=== PATIENT | male | born 1970 | race African-American/Black ===

== ENCOUNTER 2020-08-30 16:49 | Observation (INO) ==
[2020-08-30] MEDS ORDERED: 0.9 % Sodium Chloride 1,000 ML IVC STA ×2 (17:26→18:13)
[2020-08-30 17:31] LABS: Basophils % 0.3 %; Eosinophils # 0.1 K/mcL (0.0-0.6); Eosinophils % 0.9 %; Hematocrit 50.5 % (37.5-50.1); Hemoglobin 17.2 g/dL (12.9-16.9); Immature Granulocytes % 0.6 % (0-4); Lymphocytes # 1.9 K/mcL (0.6-4.6); Lymphocytes % 13.6 %; Mean Corpuscular HGB Conc 34.1 g/dL (31.6-35.5); Mean Corpuscular Hemoglobin 30.8 pg (28.0-33.3); Mean Corpuscular Volume 90.5 fL (83.0-100.0); Mean Platelet Volume 11.4 fL (9.4-12.4); Neutrophils # 10.9 K/mcL (1.6-8.9); Platelet Count 332 K/mcL (140-400); Red Blood Count 5.58 M/mcL (4.19-5.50); Red Cell Distribution Width 12.9 % (11.5-14.5); Segmented Neutrophils % 77.6 %; White Blood Count 14.1 K/mcL (4.3-11.1)
[2020-08-30 17:33] LABS: Bilirubin,Urine Negative (Negative); Blood,Urine Negative (Negative); Clarity,Urine Clear (Clear); Color,Urine Colorless (Yellow); Glucose,Urine (UA) >=1000 mg/dL (Normal); Ketones,Urine Negative (Negative); Leukocyte Esterase,Urine Negative (Negative); Nitrite,Urine Negative (Negative); Protein,Urine 30 mg/dL (Neg-Trace); RBC,Urine 0-3 per hpf (0-3); Specific Gravity,Urine 1.028 (1.010-1.025); Squamous Epithelial Cell,Urine Few per hpf (None-Few); Urobilinogen,Urine Normal (Normal); WBC,Urine 0-3 per hpf (0-3)
[2020-08-30 18:04] LABS: Calcium 9.5 mg/dL (8.6-10.3); Magnesium 2.4 mg/dL (1.6-2.6); Potassium 4.4 mEq/L (3.5-5.1)
[2020-08-30 18:14] LABS: Troponin I 0.03 ng/mL (< 0.04)
[2020-08-30 18:39] LABS: VBG HCO3 25 mEq/L (21-27); VBG PCO2 39 mmHg (41-51); VBG PH 7.42 pH Units (7.32-7.42); VBG PO2 156 mmHg (25-50)
[2020-08-30] MEDS: Insulin Human Regular 100 UNIT in 0.9 % Sodium Chloride 100 ML IVC SCH (19:09)
[2020-08-30] MEDS ORDERED: Naloxone 0.4 MG/ML INJ IVP PRN (20:59)
[2020-08-30] MEDS ORDERED: Acetaminophen 325 MG TABLET PO PRN (20:59)
[2020-08-30] MEDS ORDERED: Ondansetron 4 MG/2 ML VIAL IVP PRN (20:59)
[2020-08-30] MEDS ORDERED: Insulin Regular, Human 100 UNIT/ML IV PRN ×2 (21:07)
[2020-08-30] MEDS ORDERED: *HR* Dextrose 50 % in Water (Vial) 50 ML VIAL IVP PRN (21:07)
[2020-08-30] MEDS ORDERED: D5% in 0.45% NACL w KCl 20 MEQ/1,000 ML MLS IVC PRN (21:07)
[2020-08-30] MEDS ORDERED: D5% in 0.45% NACL 1,000 ML IVC PRN (21:07)
[2020-08-30] MEDS: 0.45 % Sodium Chloride w/KCl 20 MEQ/1,000 ML MLS IVC SCH ×4 (21:40→23:35)
[2020-08-30 23:27] LABS: Calcium 9.4 mg/dL (8.6-10.3); Potassium 3.6 mEq/L (3.5-5.1)
[2020-08-31] MEDS: 0.45 % Sodium Chloride w/KCl 20 MEQ/1,000 ML MLS IVC SCH ×5 (01:42→06:02)
[2020-08-31] MEDS ORDERED: Benzonatate 100 MG CAPSULE PO PRN (02:08)
[2020-08-31] MEDS: Insulin Human Regular 100 UNIT in 0.9 % Sodium Chloride 100 ML IVC SCH (05:05)
[2020-08-31 05:23] LABS: Hematocrit 47.9 % (37.5-50.1); Hemoglobin 16.3 g/dL (12.9-16.9); Mean Corpuscular Hemoglobin 30.4 pg (28.0-33.3); Mean Corpuscular Volume 89.2 fL (83.0-100.0); Mean Platelet Volume 11.1 fL (9.4-12.4); Platelet Count 322 K/mcL (140-400); Red Blood Count 5.37 M/mcL (4.19-5.50); Red Cell Distribution Width 12.8 % (11.5-14.5); White Blood Count 13.7 K/mcL (4.3-11.1)
[2020-08-31 05:34] LABS: Calcium 8.9 mg/dL (8.6-10.3); Potassium 3.8 mEq/L (3.5-5.1)
[2020-08-31] MEDS ORDERED: D5% in Water 1,000 ML IVC PRN (05:51)
[2020-08-31] MEDS ORDERED: *HR* Dextrose 50 % in Water (Vial) 50 ML VIAL IVP PRN (05:51)
[2020-08-31] MEDS ORDERED: Dextrose Gel 15 GM/37.5 ML TUBE PO PRN ×2 (05:51)
[2020-08-31] MEDS: *HR* Heparin 5,000 UNIT/ML VIAL SQ SCH ×2 (05:56→17:20)
[2020-08-31] MEDS: Insulin LISPRO 300 UNITS/3 ML VIAL SUBQ SCH ×6 (07:29→17:21)
[2020-08-31 08:30] LABS: Magnesium 2.1 mg/dL (1.6-2.6); Phosphorous 2.4 mg/dL (2.7-4.5)
[2020-08-31 09:40] LABS: Estimated Average Glucose 418 mg/dl; Hemoglobin A1C 16.2 %
[2020-08-31] MEDS: carvediloL 25 MG TABLET PO SCH (20:56)
[2020-08-31] MEDS ORDERED: Insulin DETEMIR 100 UNIT/ML X5UNITS SUBQ SCH (21:00)
[2020-08-31] MEDS ORDERED: Insulin LISPRO 300 UNITS/3 ML VIAL SUBQ SCH (21:00)
[2020-09-01 04:48] LABS: Hematocrit 46.3 % (37.5-50.1); Hemoglobin 15.4 g/dL (12.9-16.9); Mean Corpuscular HGB Conc 33.3 g/dL (31.6-35.5); Mean Corpuscular Hemoglobin 29.4 pg (28.0-33.3); Mean Corpuscular Volume 88.5 fL (83.0-100.0); Platelet Count 278 K/mcL (140-400); Red Blood Count 5.23 M/mcL (4.19-5.50); Red Cell Distribution Width 13.1 % (11.5-14.5); White Blood Count 10.9 K/mcL (4.3-11.1)
[2020-09-01 05:08] LABS: Calcium 8.7 mg/dL (8.6-10.3); Magnesium 1.9 mg/dL (1.6-2.6); Phosphorous 4.2 mg/dL (2.7-4.5); Potassium 3.5 mEq/L (3.5-5.1)
[2020-09-01] MEDS: *HR* Heparin 5,000 UNIT/ML VIAL SQ SCH (06:32)
[2020-09-01] MEDS: Insulin LISPRO 300 UNITS/3 ML VIAL SUBQ SCH ×4 (07:44→11:44)
[2020-09-01] MEDS: carvediloL 25 MG TABLET PO SCH (07:44)
[2020-09-01] MEDS ORDERED: lisinopriL 5 MG TABLET PO SCH (09:00)
[2020-09-01 11:53] VITALS: BP 115/83
== END 2020-09-01 15:06 | disposition home or self-care (01) ==
LOC: EMEROOARM 16:49 → 2NNU 16:49 → SUATTDRO 19:58 → 2NNU 20:54
PROVIDERS: ADMIT Internal Medicine; ATTEND Internal Medicine

== ENCOUNTER 2021-03-22 15:05 | Inpatient (IN) ==
[2021-03-22] MEDS ORDERED: Ampicillin/Sulbactam 3,000 MG in 0.9 % Sodium Chloride Mini Bag 100 ML IVPB ONE (15:43)
[2021-03-22 16:15] LABS: Basophils % 0.3 %; Immature Granulocytes % 0.8 % (0-4)
[2021-03-22 16:17] LABS: Basophils # 0.1 K/mcL (0.0-0.2); Eosinophils % 0.2 %; Hematocrit 47.4 % (37.5-50.1); Hemoglobin 15.9 g/dL (12.9-16.9); Lymphocytes # 1.4 K/mcL (0.6-4.6); Lymphocytes % 5.3 %; Mean Corpuscular HGB Conc 33.5 g/dL (31.6-35.5); Mean Corpuscular Hemoglobin 30.3 pg (28.0-33.3); Mean Corpuscular Volume 90.5 fL (83.0-100.0); Mean Platelet Volume 10.8 fL (9.4-12.4); Monocytes # 2.2 K/mcL (0.0-1.3); Monocytes % 8.2 %; Neutrophils # 22.4 K/mcL (1.6-8.9); Platelet Count 362 K/mcL (140-400); Red Blood Count 5.24 M/mcL (4.19-5.50); Red Cell Distribution Width 14.6 % (11.5-14.5); Segmented Neutrophils % 85.2 %; White Blood Count 26.3 K/mcL (4.3-11.1)
[2021-03-22 16:19] LABS: Eosinophils # 0.1 K/mcL (0.0-0.6)
[2021-03-22 16:26] LABS: Calcium 9.5 mg/dL (8.6-10.3); Potassium 3.3 mEq/L (3.5-5.1)
[2021-03-22 17:03] LABS: Platelet Estimate Normal (Normal)
[2021-03-22] MEDS ORDERED: Acetaminophen 325 MG TABLET PO PRN (20:32)
[2021-03-22] MEDS ORDERED: Naloxone 0.4 MG/ML INJ IVP PRN (20:32)
[2021-03-22] MEDS ORDERED: Ondansetron 4 MG/2 ML VIAL IVP PRN (20:32)
[2021-03-22] MEDS ORDERED: 0.9 % Sodium Chloride 1,000 ML IVC SCH (20:45)
[2021-03-22] MEDS ORDERED: D5% in Water 1,000 ML IVC PRN (20:52)
[2021-03-22] MEDS ORDERED: Dextrose Gel 15 GM/37.5 ML TUBE PO PRN ×2 (20:52)
[2021-03-22] MEDS ORDERED: *HR* Dextrose 50 % in Water (Vial) 50 ML VIAL IVP PRN (20:52)
[2021-03-22] MEDS: Insulin LISPRO 300 UNITS/3 ML VIAL SUBQ SCH (21:22)
[2021-03-22] MEDS: Ampicillin/Sulbactam 3,000 MG in 0.9 % Sodium Chloride Mini Bag 100 ML IVPB SCH (21:34)
[2021-03-23] MEDS: Ampicillin/Sulbactam 3,000 MG in 0.9 % Sodium Chloride Mini Bag 100 ML IVPB SCH ×4 (04:25→21:04)
[2021-03-23 04:43] LABS: Basophils % 0.2 %; Immature Granulocytes % 0.9 % (0-4); Red Cell Distribution Width 14.6 % (11.5-14.5)
[2021-03-23 04:45] LABS: Basophils # 0.1 K/mcL (0.0-0.2); Hematocrit 44.6 % (37.5-50.1); Hemoglobin 15.3 g/dL (12.9-16.9); Lymphocytes # 1.7 K/mcL (0.6-4.6); Lymphocytes % 6.1 %; Mean Corpuscular HGB Conc 34.3 g/dL (31.6-35.5); Mean Corpuscular Hemoglobin 30.5 pg (28.0-33.3); Mean Platelet Volume 10.4 fL (9.4-12.4); Monocytes # 2.5 K/mcL (0.0-1.3); Monocytes % 8.8 %; Neutrophils # 23.6 K/mcL (1.6-8.9); Platelet Count 349 K/mcL (140-400); Red Blood Count 5.01 M/mcL (4.19-5.50); White Blood Count 28.1 K/mcL (4.3-11.1)
[2021-03-23 04:49] LABS: INR 1.4; Prothrombin Time 15.5 Seconds (9.4-12.1)
[2021-03-23 05:04] LABS: Calcium 9.1 mg/dL (8.6-10.3); Magnesium 2.3 mg/dL (1.6-2.6); Potassium 3.4 mEq/L (3.5-5.1)
[2021-03-23 05:10] LABS: Estimated Average Glucose 131 mg/dl; Hemoglobin A1C 6.2 %
[2021-03-23] MEDS ORDERED: Furosemide 40 MG/4 ML VIAL IVP ONE (07:46)
[2021-03-23] MEDS: Insulin LISPRO 300 UNITS/3 ML VIAL SUBQ SCH ×3 (10:29→16:37)
[2021-03-23] MEDS: Ringers Solution, Lactated 1,000 ML IVC SCH ×2 (12:19→22:53)
[2021-03-23] MEDS: carvediloL 6.25 MG TABLET PO SCH (16:42)
[2021-03-23] MEDS ORDERED: Insulin DETEMIR 100 UNIT/ML X5UNITS SUBQ SCH ×2 (21:00)
[2021-03-24] MEDS: Ampicillin/Sulbactam 3,000 MG in 0.9 % Sodium Chloride Mini Bag 100 ML IVPB SCH ×4 (03:35→21:22)
[2021-03-24] MEDS: Insulin LISPRO 300 UNITS/3 ML VIAL SUBQ SCH ×3 (08:49→16:43)
[2021-03-24] MEDS: carvediloL 6.25 MG TABLET PO SCH ×2 (09:13→16:47)
[2021-03-24] MEDS: Nicotine 14 MG PATCH.TD24 TD SCH (09:13)
[2021-03-24 10:14] LABS: Basophils # 0.1 K/mcL (0.0-0.2); Basophils % 0.6 %; Eosinophils # 0.3 K/mcL (0.0-0.6); Eosinophils % 1.3 %; Hematocrit 43.6 % (37.5-50.1); Hemoglobin 14.7 g/dL (12.9-16.9); Lymphocytes # 3.3 K/mcL (0.6-4.6); Lymphocytes % 16.6 %; Mean Corpuscular HGB Conc 33.7 g/dL (31.6-35.5); Mean Corpuscular Hemoglobin 30.4 pg (28.0-33.3); Mean Corpuscular Volume 90.1 fL (83.0-100.0); Mean Platelet Volume 10.8 fL (9.4-12.4); Monocytes # 1.4 K/mcL (0.0-1.3); Monocytes % 6.8 %; Neutrophils # 14.7 K/mcL (1.6-8.9); Platelet Count 353 K/mcL (140-400); Red Blood Count 4.84 M/mcL (4.19-5.50); Red Cell Distribution Width 14.6 % (11.5-14.5); Segmented Neutrophils % 73.7 %; White Blood Count 19.9 K/mcL (4.3-11.1)
[2021-03-24 10:38] LABS: Calcium 8.8 mg/dL (8.6-10.3); Magnesium 1.9 mg/dL (1.6-2.6)
[2021-03-25] MEDS: Ampicillin/Sulbactam 3,000 MG in 0.9 % Sodium Chloride Mini Bag 100 ML IVPB SCH (05:08)
[2021-03-25 06:39] LABS: Basophils # 0.1 K/mcL (0.0-0.2); Basophils % 0.8 %; Eosinophils # 0.4 K/mcL (0.0-0.6); Hematocrit 47.4 % (37.5-50.1); Hemoglobin 15.3 g/dL (12.9-16.9); Immature Granulocytes % 1.1 % (0-4); Lymphocytes # 3.1 K/mcL (0.6-4.6); Mean Corpuscular HGB Conc 32.3 g/dL (31.6-35.5); Mean Corpuscular Hemoglobin 29.5 pg (28.0-33.3); Mean Corpuscular Volume 91.3 fL (83.0-100.0); Mean Platelet Volume 10.6 fL (9.4-12.4); Monocytes # 1.1 K/mcL (0.0-1.3); Monocytes % 7.4 %; Neutrophils # 9.9 K/mcL (1.6-8.9); Platelet Count 383 K/mcL (140-400); Red Blood Count 5.19 M/mcL (4.19-5.50); Red Cell Distribution Width 14.6 % (11.5-14.5); Segmented Neutrophils % 66.7 %; White Blood Count 14.8 K/mcL (4.3-11.1)
[2021-03-25 06:57] LABS: Calcium 8.9 mg/dL (8.6-10.3); Magnesium 1.7 mg/dL (1.6-2.6); Potassium 3.2 mEq/L (3.5-5.1)
[2021-03-25 07:35] VITALS: PULSE 89; TEMP 99; O2SAT 98
[2021-03-25] MEDS: Nicotine 14 MG PATCH.TD24 TD SCH (08:00)
[2021-03-25] MEDS: carvediloL 6.25 MG TABLET PO SCH (08:00)
[2021-03-25] MEDS: Insulin LISPRO 300 UNITS/3 ML VIAL SUBQ SCH (08:10)
[2021-03-25] MEDS ORDERED: carvediloL 6.25 MG TABLET PO ONE (09:52)
[2021-03-25] MEDS ORDERED: NIFEdipine XL (24 HR) 30 MG TAB.ER.24 PO SCH (10:00)
[2021-03-25 10:25] VITALS: BP 142/100
[2021-03-25] MEDS ORDERED: carvediloL 6.25 MG TABLET PO SCH (17:00)
== END 2021-03-25 10:50 | disposition home or self-care (01) | DRG 720 ==
LOC: 3ANU 15:05 → EMEROOARM 15:05 → SUATTDRO 18:49 → 3BNU 19:43 → 3NENU 22:58
PROVIDERS: ADMIT Student in an Organized Health Care Education/Training Program; ATTEND Pharmacist